=== PATIENT | male | born 1995 | race African-American/Black ===

== ENCOUNTER 2018-07-26 09:26 | Emergency (ER) | payer OTHER ==
[2018-07-26 09:37] VITALS: Ht 193 cm
[2018-07-26 10:07] VITALS: BP 148/97
== END 2018-07-26 10:07 | disposition home or self-care (01) ==
LOC: ED 09:26
DX: S96.991A Other specified injury of unspecified muscle and tendon at ankle and foot level, right foot, initial encounter (principal); X58.XXXA Exposure to other specified factors, initial encounter; Y93.39 Activity, other involving climbing, rappelling and jumping off; Y92.89 Other specified places as the place of occurrence of the external cause; Y99.8 Other external cause status

== ENCOUNTER 2018-10-07 13:41 | Emergency (ER) | payer OTHER ==
[~2018-10-07] VITALS: Ht 193 cm; Wt 136.5 kg
[2018-10-07 13:56] VITALS: Ht 193 cm; Wt 136.5 kg
[2018-10-07 16:29] VITALS: BP 134/84
== END 2018-10-07 16:29 | disposition home or self-care (01) ==
LOC: ED 13:41
DX: B34.9 Viral infection, unspecified (principal)